=== PATIENT | female | born 1950 ===

== ENCOUNTER 2018-02-19 11:50 | Emergency (ER) | payer SELFPAY ==
[2018-02-19 12:34] VITALS: BP 119/46
--- NOTE | 2018-02-19 13:22 | ED ---
Lower Extremity - HPI Summary HPI Summary: 67 yr old with pain in left hip, onset yesterday when she twisted and got out of bed, felt pain in left hip that radiates lateral left thigh and into lateral left leg. No fever, chills. Pain is worse with weight bearing and moving the hip. No other complaints. - History of Current Complaint Chief Complaint: UCLowerExtremity Stated Complaint: LEFT LEG PAIN Time Seen by Provider: 02/19/18 13:05 Pain Intensity: 2 - Allergies/Home Medications Allergies/Adverse Reactions: Allergies Allergy/AdvReac Type Severity Reaction Status Date / Time Penicillins Allergy Hives Verified 02/19/18 12:28 Home Medications: Home Medications NK [No Home Medications Reported] 02/19/18 [History Confirmed 02/19/18] PMH/Surg Hx/FS Hx/Imm Hx - Surgical History Surgery Procedure, Year, and Place: wrist surgery Infectious Disease History: No Infectious Disease History: Denies: Traveled Outside the [place] in Last 30 Days - Family History Known Family History: Positive: None - Social History Occupation: Retired Alcohol Use: None Substance Use Type: Reports: None Smoking Status (MU): Heavy Every Day Tobacco Smoker Type: Cigarettes Amount Used/How Often: 1 PPD Review of Systems Constitutional: Negative Positive: Other - left hip pain, denies back pain All Other Systems Reviewed And Are Negative: Yes Physical Exam Triage Information Reviewed: Yes Vital Signs On Initial Exam: Initial Vitals Temp Pulse Resp BP Pulse Ox 98.2 F 66 20 119/46 100 02/19/18 12:28 02/19/18 12:28 02/19/18 12:28 02/19/18 12:28 02/19/18 12:28 Vital Signs Reviewed: Yes Appearance: Positive: Well-Appearing, No Pain Distress Skin: Positive: Warm, Skin Color Reflects Adequate Perfusion Head/Face: Positive: Normal Head/Face Inspection Eyes: Positive: EOMI ENT: Positive: Normal ENT inspection Dental: Positive: Percussion Tenderness @ Neck: Positive: Nontender Respiratory/Lung Sounds: Positive: Clear to Auscultation, Breath Sounds Present Cardiovascular: Positive: RRR. Negative: Murmur Abdomen Description: Positive: Nontender Musculoskeletal: Positive: Strength/ROM Intact, Other - left hip tender to palpate. No STS. No redness no effusion. TLS spine non tender to palpate. Neurological: Positive: Sensory/Motor Intact, Alert, Oriented to Person Place, Time, CN Intact II-III Psychiatric: Positive: Normal - Darion Coma Scale Best Eye Response: 4 - Spontaneous Best Motor Response: 6 - Obeys Commands Best Verbal Response: 5 - Oriented Coma Scale Total: 15 Diagnostics - Vital Signs Vital Signs Temp Pulse Resp BP Pulse Ox 02/19/18 12:28 98.2 F 66 20 119/46 100 - Laboratory Lab Statement: Any lab studies that have been ordered have been reviewed, and results considered in the medical decision making process. - Radiology left hip, pelvis and lumbar spine Xray Interpretation: Positive (See Comments) - DJD lumbar spine. DJD left hip osetoarthritis. Radiology Interpretation Completed By: Radiologist Lower Extremity Course/Dx - Course Course Of Treatment: 67 yr old female with left hip pain. - Diagnoses Provider Diagnoses: Osteoarthritis of left hip, Osteoarthritis of lumbar spine Discharge - Sign-Out/Discharge Documenting (check all that apply): Discharge - Discharge Plan Condition: Good Disposition: HOME Patient Education Materials: Osteoarthritis (ED), Hip Pain (ED) Referrals: No Primary Care Phys,NOPCP [Primary Care Provider] - Milad Ballard MD [Medical Doctor] - - Billing Disposition and Condition Condition: GOOD Disposition: HOME
--- NOTE | 2018-02-19 13:46 | RAD ---
INDICATION: Left hip pain COMPARISON: None TECHNIQUE: An AP view of the pelvis and AP views of the hip in neutral and abducted position were obtained FINDINGS: Bones: There are no acute bony findings. Joint spaces: The hip joint space are preserved. There are minor hypertrophic changes about the acetabula greater than right. The SI joints and symphysis are intact. SI joints/symphysis: The SI joints and symphysis are intact. Other: None IMPRESSION: MINOR OSTEOARTHRITIS LEFT HIP.
--- NOTE | 2018-02-19 13:50 | RAD ---
INDICATION: Low back pain. COMPARISON: Comparison is made with a prior study from March 29, 2008. TECHNIQUE: 5 views of the lumbar spine were obtained including lateral, oblique, AP and a coned-down lateral view of the lumbar sacral junction. FINDINGS: The vertebra are in normal alignment. No fracture is seen. There is mild diffuse degenerative disc disease. IMPRESSION: 1. NO EVIDENCE FOR FRACTURE. 2. MILD DIFFUSE DEGENERATIVE DISC DISEASE.
== END 2018-02-19 14:15 | disposition home or self-care (01) ==
LOC: UCCORT 11:50
DX: M25.552 Pain in left hip (principal); M51.37 Other intervertebral disc degeneration, lumbosacral region; F17.210 Nicotine dependence, cigarettes, uncomplicated; Z88.0 Allergy status to penicillin
CPT/HCPCS: 72110; 99202; G0463